=== PATIENT | female | born 1940 | race Caucasian/White ===

== ENCOUNTER 2024-03-03 08:10 | Emergency (ER) | payer MEDICARE, SELFPAY ==
[2024-03-03] VITALS (11 sets, daily range): BP systolic 114–142; BP diastolic 45–66; PULSE 78–89; TEMP 36.9; O2SAT 95–99; BMI 19.4
--- NOTE | 2024-03-03 08:20 | ECG_ITS ---
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
--- NOTE | 2024-03-03 08:27 | XR_ITS ---
The [address] [address] Patient Name: ELY MANN MRN: [id number] date: 1940 Sex: F Assigned Patient Location: ER Current Patient Location: ER Accession/Order Number: [id number] Exam Date: 03/03/2024 08:40 Report Date: 03/03/2024 09:03 At the request of: KEMAR BAILON Procedure: XR shoulder RT min 2V PROCEDURE: XR shoulder RT min 2V HISTORY: fall ; pain after falling COMPARISON: None. FINDINGS: BONES:No fracture, dislocation, bone lesion. Degenerative changes of the acromioclavicular joint. SOFT TISSUES:No visible soft tissue swelling. EFFUSION:None visible. OTHER: Negative. XR/XR shoulder RT min 2V IMPRESSION: 1. No acute bone abnormality. Electronically authenticated by: JOSE BELCHER Date: 03/03/2024 09:03
--- NOTE | 2024-03-03 08:27 | XR_ITS ---
The [address] [address] Patient Name: ELY MANN MRN: [id number] date: 1940 Sex: F Assigned Patient Location: ER Current Patient Location: ER Accession/Order Number: [id number] Exam Date: 03/03/2024 08:40 Report Date: 03/03/2024 09:04 At the request of: KEMAR BAILON Procedure: XR chest 1V EXAMINATION: XR chest 1V HISTORY: cough COMPARISON: XR chest 04/12/2012 FINDINGS: LUNGS: Hyperexpanded lungs. No appreciable infiltrates or mass. VASCULATURE: No increased pulmonary vasculature. PLEURA: No pneumothorax, effusion, or pleural thickening. CARDIAC: No cardiomegaly or cardiac silhouette abnormality. MEDIASTINUM: No visible mass or adenopathy. BONES: Degenerative changes of the acromioclavicular joints, right greater than left. No fracture. OTHER: Negative. XR/XR chest 1V IMPRESSION: 1. No acute cardiopulmonary process. Electronically authenticated by: JOSE BELCHER Date: 03/03/2024 09:04
--- NOTE | 2024-03-03 08:28 | CT_ITS ---
The [address] [address] Patient Name: ELY MANN MRN: [id number] date: 1940 Sex: F Assigned Patient Location: ER Current Patient Location: ER Accession/Order Number: [id number] Exam Date: 03/03/2024 08:40 Report Date: 03/03/2024 09:02 At the request of: KEMAR BAILON Procedure: CT head/brain wo con EXAMINATION: CT head/brain wo con HISTORY: fall ; near syncopal episode; posterior head pain after falling and striking head COMPARISON: No relevant comparison available. TECHNIQUE: Axial CT images were obtained without IV contrast. Dose reduction techniques were achieved by using automated exposure control and/or adjustment of mA and/or kV according to patient size and/or use of iterative reconstruction technique. FINDINGS: BRAIN: No edema, hemorrhage, mass, acute infarction, or inappropriate atrophy. CSF SPACES: No hydrocephalus, subarachnoid hemorrhage, or mass. Appropriate for age. SKULL: No fracture, mass, or other significant visible lesion. SINUSES: No significant mucosal thickening or fluid on the limited views. ORBITS: No appreciable abnormality on the limited views. OTHER: Negative CT/CT head/brain wo con IMPRESSION: 1. No intercranial hemorrhage or appreciable acute abnormality. 2. Age consistent chronic changes. 3. No fracture of the calvarium or scalp hematoma. 4. Mild chronic sinusitis. Electronically authenticated by: JOSE BELCHER Date: 03/03/2024 09:02
--- NOTE | 2024-03-03 08:28 | ED.GENADUL1 ---
HPI HPI - General Adult General Chief complaint: Head Injury Stated complaint: FALL./SHORTNESS OF BREATH Time Seen by Provider: 03/03/24 08:18 Source: patient Mode of arrival: walk-in Limitations: no limitations History of Present Illness HPI narrative: 84-year-old female presents with several complaints. First she has had a cough for a few days. She states she had a fever at home but does not know what it was. She states her took it. Her cough has been mostly nonproductive. Last night she started to fall but then caught herself but then later on she fell when she hurt her right shoulder and hit the right side of her head. No LOC or vomiting but she has a sharp shooting pain in her head. She does not take blood thinners. Related Data Home Medications ?Medication ?Instructions ?Recorded ?Confirmed estradiol 0.01% (0.1 mg/gram) 1 appful vaginal DAILY 03/03/24 03/03/24 vaginal cream Allergies Allergy/AdvReac Type Severity Reaction Status Date / Time adhesive tape Allergy Mild Verified 03/03/24 08:27 aspirin Allergy Mild Verified 03/03/24 08:27 cephalexin Allergy Mild Verified 03/03/24 08:27 ciprofloxacin [From Cipro] Allergy Mild Verified 03/03/24 08:27 doxycycline Allergy Mild Verified 03/03/24 08:27 esomeprazole [From Nexium] Allergy Mild Verified 03/03/24 08:27 hyoscyamine [From Uribel] Allergy Mild Verified 03/03/24 08:27 influenza virus vaccine qs Allergy Mild Verified 03/03/24 08:27 [id number] (65 years up) [From Fluad Quad (65y up)(PF)] methenamine [From Uribel] Allergy Mild Verified 03/03/24 08:27 methylene blue [From Uribel] Allergy Mild Verified 03/03/24 08:27 morphine Allergy Mild Verified 03/03/24 08:27 omeprazole Allergy Mild Verified 03/03/24 08:27 salicylates [From Uribel] Allergy Mild Verified 03/03/24 08:27 sodium phosphate Allergy Mild Verified 03/03/24 08:27 [From Uribel] Sulfa (Sulfonamide Allergy Mild Verified 03/03/24 08:27 Antibiotics) trazodone [From Desyrel] Allergy Mild Verified 03/03/24 08:27 vaccine adjuvant emulsion Allergy Mild Verified 03/03/24 08:27 [id number] [From Fluad Quad (65y up)(PF)] allopurinol Allergy Mild Uncoded 03/03/24 08:27 flonase Allergy Mild Uncoded 03/03/24 08:27 Opioid HPI Opioid Management Most Recent Opioid Data: Last Pain Scale 7 03/03/24 08:44 Last ED Pain Assessment 03/03/24 08:44 Review of Systems ROS Narrative A ten point review of systems is negative except as noted above. She has frequent constipation. Exam Narrative Exam Narrative: Nurses note and vital signs reviewed and patient is not hypoxic. General: The patient appears well and in no apparent distress. Patient is resting comfortably on cart. Skin: Warm, dry, no pallor noted. There is no rash noted. Head: Normocephalic, atraumatic, no hematoma noted. Cervical spine nontender. Eye: Normal conjunctiva, no drainage Ears, Nose, Mouth, and Throat: oral mucosa is moist. Nares patent. Cardiovascular: Regular Rate and Rhythm Respiratory: Patient is in no distress, no accessory muscle use, lungs are clear and equal Back: non-tender, no CVA tenderness bilaterally to percussion. GI: Soft and nontender Musculoskeletal: Right elbow is nontender and has full range of motion. The right shoulder has no deformity or bruising. Range of Motion: Causes discomfort. Neurological: A&O, normal speech Psychiatric: Cooperative Constitutional Vital Signs, click to edit/add: Last Vital Signs Temp 98.5 F 03/03/24 08:20 Pulse 81 03/03/24 09:20 Resp 18 03/03/24 08:20 BP 114/62 03/03/24 09:15 Pulse Ox 97 03/03/24 09:20 O2 Del Method Room Air 03/03/24 08:39 Course Vital Signs Vital signs: Vital Signs Pulse Rate 89 03/03/24 08:19 Pulse Oximetry 99 03/03/24 08:19 Temperature 98.5 F 03/03/24 08:20 Pulse Rate 81 03/03/24 09:20 Respiratory Rate 18 03/03/24 08:20 Blood Pressure 114/62 03/03/24 09:15 Pulse Oximetry 97 03/03/24 09:20 Oxygen Delivery Method Room Air 03/03/24 08:39 Medical Decision Making MDM Narrative Medical decision making narrative: CAT scan of the brain, shoulder x-ray, chest x-ray, and blood work is all essentially negative. She did test positive for COVID. She has been ambulatory here without difficulty and is able to be discharged home. She is outside the window for treatment for Paxlovid. Treatment diagnosis and follow-up were discussed with the patient. Differential Diagnosis Differential Diagnosis: COVID, influenza, dehydration, shoulder injury, intracranial hemorrhage Lab Data Lab results reviewed: Yes I reviewed the patient's lab results Labs: Lab Results 03/03/24 03/03/24 Range/Units 08:34 08:36 WBC 11.5 H (4.0-11.0) 10^3/uL RBC 4.63 (4.20-5.40) 10^6/uL Hgb 13.2 (12.0-16.0) g/dL Hct 42.0 (36.0-48.0) % MCV 90.7 (81.0-99.0) fL MCH 28.5 (26.7-34.0) pg MCHC 31.4 (29.9-35.2) g/dL RDW 13.0 (11.0-15.0) % Plt Count 234 (150-450) 10^3/uL MPV 9.8 (9.5-13.5) fL Seg Neuts % (Manual) 84.0 Lymphocytes % (Manual) 7.0 L (20.5-60.0) % Monocytes % (Manual) 7.0 (1.7-12.0) % Eosinophils % (Manual) 0.0 L (0.9-7.0) % Basophils % (Manual) 2.0 (0.2-2.0) % Neutrophils # (Manual) 9.66 H (1.4-6.5) 10^3/uL Lymphocytes # (Manual) 0.80 L (1.20-3.80) 10^3/uL Monocytes # (Manual) 0.80 (0.30-0.80) 10^3/uL Eosinophils # (Manual) 0.00 (0.00-0.70) 10^3/uL Basophils # (Manual) 0.23 H (0.00-0.10) 10^3/uL Sodium 137 (136-145) mmol/L Potassium 3.9 (3.5-5.1) mmol/L Chloride 102 (98-107) mmol/L Carbon Dioxide 24.5 (21.0-32.0) mmol/L Anion Gap 14.4 BUN 10.0 (7.0-18.0) mg/dL Creatinine 1.07 H (0.55-1.02) mg/dL Est GFR ( Amer) 59 L (>=60) Est GFR (Non-Af Amer) 49 L (>=60) BUN/Creatinine Ratio 9.3 Glucose 113 H (74-106) mg/dL Calcium 8.9 (8.5-10.1) mg/dL Influenza Type A Ag Negative Influenza Type B Ag Negative SARS-CoV-2 Ag (CV2AG) Positive A (NEGATIVE) Imaging Data Chest x-ray: Radiologist's impression: ITS Impressions Chest X-Ray 03/03/24 08:27 IMPRESSION: 1. No acute cardiopulmonary process. Electronically authenticated by: JOSE BELCHER Date: 03/03/2024 09:04 Shoulder X-Ray 03/03/24 08:27 IMPRESSION: 1. No acute bone abnormality. Electronically authenticated by: JOSE BELCHER Date: 03/03/2024 09:[address] 03/03/24 08:28 IMPRESSION: 1. No intercranial hemorrhage or appreciable acute abnormality. 2. Age consistent chronic changes. 3. No fracture of the calvarium or scalp hematoma. 4. Mild chronic sinusitis. Electronically authenticated by: JOSE BELCHER Date: 03/03/2024 09:02 ECG Data Attestation: I personally reviewed and interpreted this ECG as follows: (EKG on my interpretation shows normal sinus rhythm with a rate of 88.) Discharge Plan Discharge Stand Alone Forms: Portal Instructions Chief Complaint: Head Injury Clinical Impression: COVID-19 Patient Disposition: Home, Self-Care Time of Disposition Decision: 09:39 Condition: Good Mode of Transportation: Private Vehicle Prescriptions / Home Meds: No Action estradiol 0.01 % (0.1 mg/gram) cream 1 appful VAGINAL DAILY Print Language: Cymraes Instructions: COVID-19 (Coronavirus Disease 2019) (ED), COVID-19: Slow the Coronavirus Spread (ED), How to Recover from COVID-19 at Home (ED) Referrals: HAY SPEARS [Primary Care Provider] - 1 week
[2024-03-03 08:43] LABS: Hemoglobin 13.2 g/dL (12.0-16.0); Mean Corpuscular HGB Conc 31.4 g/dL (29.9-35.2); Mean Corpuscular Hemoglobin 28.5 pg (26.7-34.0); Mean Corpuscular Volume 90.7 fL (81.0-99.0); Mean Platelet Volume 9.8 fL (9.5-13.5); Platelet Count 234 10^3/uL (150-450); Red Blood Count 4.63 10^6/uL (4.20-5.40); White Blood Count 11.5 10^3/uL (4.0-11.0)
[2024-03-03 08:53] LABS: Anion Gap 14.4; BUN Creatinine Ratio 9.3; Calcium 8.9 mg/dL (8.5-10.1); Carbon Dioxide 24.5 mmol/L (21.0-32.0); Chloride 102 mmol/L (98-107); Estimated GFR (African America 59 (>=60); Estimated GFR (Non-African Ame 49 (>=60); Glucose 113 mg/dL (74-106); Potassium 3.9 mmol/L (3.5-5.1); Sodium 137 mmol/L (136-145)
[2024-03-03 08:56] LABS: Influenza Virus A Antigen Negative; Influenza Virus B Antigen Negative; Internal Control Within Normal Limits
[2024-03-03 08:57] LABS: SARS-CoV-2 Ag POSITIVE (NEGATIVE)
[2024-03-03 09:04] LABS: Basophils Abs Manual 0.23 10^3/uL (0.00-0.10); Segmented Neut Absolute Manual 9.66 10^3/uL (1.4-6.5)
== END 2024-03-03 09:44 | disposition home or self-care (01) ==
PROVIDERS: Emergency Provider Emergency Medicine; PCP Family Medicine
DX: U07.1 COVID-19 (principal); Z79.899 Other long term (current) drug therapy
CPT/HCPCS: 36415; 70450; 71045; 73030; 80048; 85007; 85027; 87804; 87811; 93005; 99285